=== PATIENT | male | born 1970 | race Caucasian/White ===

== ENCOUNTER → 2019-03-23 | Outpatient (CLI) | payer MEDICAID ==
[~2019-03-23] MED LIST: AMLO5TAB4 PO; CONTRAST GIVEN. MC PRN; GABA600T7 PO; IOHEXOL 180 MG/ML 10 ML VIAL. IT ONE; LIDOCAINE 1% Multi-Dose 20 ML VIAL. ID ONE; RANI150T2 PO; TIZA4TAB8 PO
--- NOTE | 2019-03-23 11:03 | KCIC ---
Lumbar Myelogram History: Low back pain. Lumbar radiculopathy. Technique: Patient was informed of the risks of the procedure to include pain, infection, bleeding, seizures, nerve root injury, and allergic reaction to the contrast. All questions were answered. Patient signed a written consent form for a lumbar myelogram. The patient was placed in a prone oblique position on the flouroscopy table. External site of the lower back was prepped and draped in the usual sterile fashion. Betadine was utilized for cleansing solution. 1% lidocaine was utilized for local anesthesia at the anticipated site of puncture L2-L3. A 22-gauge Kristie needle was advanced until there was return of cerebral spinal fluid. Approximately 18 cc of Omnipaque 180 were then injected during fluoroscopic visualization. The needles were removed. Sterile dressing was applied. Fluoroscopic spot images including standing images were acquired of the lumbar spine. The patient was then transferred to the CT department for CT examination of the lumbar spine. There were no immediate complications. Fluoroscopy time: 1 minute and 6 seconds seconds Findings: Contrast opacified the thecal sac. Multilevel degenerative changes of the lumbar spine. No high-grade blockage of contrast flow. Impression: 1. Successful lumbar myelogram. CT lumbar spine to follow. Electronically signed by: Raoul Campos MD (03/23/2019 11:01 AM) [id number]
--- NOTE | 2019-03-23 11:15 | KCIC ---
CT lumbar spine myelogram. History: Low back pain. Radiculopathy. Left-sided leg numbness and pain. Technique: CT imaging was performed of the lumbar spine after injection for lumbar myelogram. Multiplanar reconstruction images are submitted. The patient was scanned in the prone positioning. Exposure: One or more of the following individualized dose reduction techniques were utilized for this examination: 1. Automated exposure control 2. Adjustment of the mA and/or kV according to patient size 3. Use of iterative reconstruction technique. Contrast: 18 mL Omnipaque 180 intrathecal contrast was administered. See separate myelogram dictation report for further details. Comparison: MRI brain lumbar spine January 03, 2019. Findings: Grade 1 anterolisthesis L3 on L4, unchanged. Normal vertebral body height. No fracture. Conus terminates in normal location. No evidence of nerve root clumping. T12-L1: No canal or neural foraminal narrowing. L1-L2: No canal or neural foraminal narrowing. L2-L3: Small posterior disc bulge. Mild facet arthropathy. No canal or neural foraminal narrowing. L3-L4: Grade 1 anterolisthesis due to bilateral spondylolysis. Vacuum disc phenomenon. Disc unroofing. Broad-based disc bulge/protrusion mild bilateral subarticular recess narrowing. No canal narrowing. Severe bilateral neural foraminal narrowing, left greater than right. This finding is unchanged compared to prior MRI. L4-L5: Broad-based disc bulge eccentric to the right. Mild right subarticular recess narrowing with abutment of the descending right L5 nerve root, unchanged. Mild facet arthropathy. No canal narrowing. Moderate right neuroforaminal narrowing. L5-S1: Small posterior disc bulge. No canal narrowing. Mild facet arthropathy. Mild bilateral neural foraminal narrowing. Impression: 1. Multilevel lumbar spondylosis most prominent at L3-L4 and L4-L5, unchanged. 2. Grade 1 anterolisthesis L3 on L4 due to bilateral spondylolysis with moderate associated degenerative changes contributing to severe bilateral neural foraminal narrowing, left greater than right, unchanged. Recommend correlation for bilateral L3 radiculopathy. 3. Moderate right L4-L5 neural foraminal narrowing, unchanged. Electronically signed by: Raoul Campos MD (03/23/2019 11:12 AM) [email or web address]
--- NOTE | 2019-03-23 12:12 | KCIC ---
5 views of the lumbar spine 03/23/2019 INDICATION: Radiculopathy. COMPARISON STUDY: None Discussion: No evidence of acute fracture or alignment abnormality is identified. Mild dextro curvature of the lumbar spine is seen. There is grade 1 anterolisthesis of L3 on L4. Probable pars defects are noted bilaterally at this level, limiting visualization is somewhat limited given significant sclerosis. 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 Vertebral body heights are preserved. Disc space narrowing at L3-L4 and L5-S1 noted. The alignment of the lumbar spine appears grossly unchanged in flexion and extension. IMPRESSION: 1. 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 Degenerative changes of the lumbar spine including facet arthrosis comment disc space narrowing as described above. 3. Given history of radiculopathy MRI or CT myelogram may be helpful. Electronically signed by: José Miguel Branhart MD (03/23/2019 12:09 PM) [id number]
== END | disposition home or self-care (01) ==
LOC: KCIC 08:45
PROVIDERS: ATTEND Neurological Surgery
DX: M47.26 Other spondylosis with radiculopathy, lumbar region (principal); M48.07 Spinal stenosis, lumbosacral region; M43.16 Spondylolisthesis, lumbar region; M12.88 Other specific arthropathies, not elsewhere classified, other specified site; I10 Essential (primary) hypertension; F17.200 Nicotine dependence, unspecified, uncomplicated
CPT/HCPCS: 72110; 72132; 72265; Q9965